=== PATIENT | male | born 1955 | race American Indian/Alaskan Native ===

== ENCOUNTER 2018-10-22 09:47 | Day surgery (SDC) | payer BC ==
[2018-10-21 11:41] VITALS: BMI 28.3
[2018-10-22 10:45] LABS: BLOOD UREA NITROGEN 14 mg/dL (7-21); CALCIUM 8.9 mg/dL (8.4-10.5); GFR NON-AFRICAN AMERICAN 56
[2018-10-22 10:47] LABS: BASO # 0.02 K/mm3 (0.0-2.0); BASO % 0.6 % (0.0-3.0); EOS # 0.1 (0.0-0.7); EOS % 2.1 % (1.5-5.0); HEMOGLOBIN 12.8 g/dL (14.0-18.0); LYMPH # 1.1 (1.2-3.4); LYMPH % 32.3 % (22.0-35.0); MEAN CELL VOLUME 96.9 fl (80.0-105.0); MEAN CORPUSCULAR HEMOGLOBIN 30.6 pg (25.0-35.0); MEAN CORPUSCULAR HGB CONC 31.6 g/dl (31.0-37.0); MEAN PLATELET VOLUME 9.8 fl (7.0-11.0); MONO # 0.4 (0.1-0.6); MONO % 12.9 % (1.0-6.0); RBC 4.18 10^6/uL (3.5-6.1); RED CELL DISTRIBUTION WIDTH 13.5 % (11.5-14.5); WHITE BLOOD COUNT 3.4 10^3/uL (4.5-11.0)
[2018-10-22 10:51] LABS: INR 1.05; PARTIAL THROMBOPLASTIN TIME 35.9 Seconds (26.9-38.3); PROTHROMBIN TIME 11.9 SECONDS (9.4-12.5)
[2018-10-22] MEDS ORDERED: Nitroglycerin 50mg in D5W 0 MG/0 ML BOTTLE IV ONE (11:15)
[2018-10-22] MEDS ORDERED: Lidocaine 2% Inj (20ml) ONE (11:15)
[2018-10-22] MEDS ORDERED: Iohexol 350 MG/100 ML VIAL ONE (11:15)
[2018-10-22] MEDS ORDERED: Iohexol 350mgl/ml 50 ML ONE (11:15)
[2018-10-22] MEDS ORDERED: Midazolam 2 MG/2 ML VIAL ONE ×3 (12:41→13:18)
[2018-10-22] MEDS ORDERED: Sodium Chloride 0.9% 1,000 ML IV SCH (14:00)
--- NOTE | 2018-10-22 15:10 | CP.PCM.HP ---
<Yuan Vail - Last Filed: 10/23/18 06:45> History of Present Illness - History of Present Illness History of Present Illness: Patient is a 63 male with past medical history of hypertension, asthma, and hyperlipidemia presenting s/p PTCA. 3 stents were placed: 2 stents in first and second OM and 3rd stent in the circumflex. Patient is seen after procedure doing well in no acute distress and without complaints. Patient states about 3 weeks ago her experienced a stabbing chest pain when walking to his car. He followed up with his PMD regarding this smyptom who referred patinet to Dr. Burrell who did the PTCA. Patient states prior to these 3 weeks he had never experienced this chest pain. Surgical hx: Prostatectomy Allergies:NKDA Social hx: denies tobacco, alcohol, illicit drug use Family hx: father: CHF Present on Admission - Present on Admission Any Indicators Present on Admission: No Review of Systems - Constitutional Constitutional: absent: Chills, Fever - EENT Eyes: absent: Change in Vision Ears: absent: Dizziness - Cardiovascular Cardiovascular: absent: Chest Pain, Dyspnea, Leg Edema, Palpitations, Rapid Heart Rate - Respiratory Respiratory: absent: Cough, Dyspnea - Gastrointestinal Gastrointestinal: absent: Abdominal Pain - Genitourinary Genitourinary: absent: Dysuria - Musculoskeletal Musculoskeletal: absent: Back Pain, Numbness, Tingling - Psychiatric Psychiatric: absent: Anxiety - Hematologic/Lymphatic Hematologic: absent: Easy Bleeding Past Patient History - Past Medical History & Family History Past Medical History?: Yes - Past Social History Smoking Status: Never Smoked - CARDIAC Hx Pacemaker: No - PULMONARY Hx Respiratory Disorders: Yes Hx Asthma: Yes - NEUROLOGICAL Hx Paralysis: No - HEENT Hx HEENT Problems: No - RENAL Hx Chronic Kidney Disease: No Other/Comment: BPH. HEMATURIA - ENDOCRINE/METABOLIC Hx Endocrine Disorders: No - HEMATOLOGICAL/ONCOLOGICAL Hx Blood Transfusions: No - INTEGUMENTARY Hx Dermatological Problems: No - MUSCULOSKELETAL/RHEUMATOLOGICAL Hx Musculoskeletal Disorders: Yes - GASTROINTESTINAL Hx Gastrointestinal Disorders: No - GENITOURINARY/GYNECOLOGICAL Hx Prostate Problems: Yes - PSYCHIATRIC Hx Emotional Abuse: No Hx Physical Abuse: No Hx Substance Use: No - SURGICAL HISTORY Hx Surgeries: Yes - ANESTHESIA Hx Anesthesia Reactions: No Hx Malignant Hyperthermia: No Meds Home Medications: Home Medication List Medication Instructions Recorded Confirmed Type RX: Atorvastatin [Lipitor] 40 mg PO DIN #30 tab 10/22/18 Rx Allergies/Adverse Reactions: Allergies Allergy/AdvReac Type Severity Reaction Status Date / Time No Known Allergies Allergy Verified 02/23/14 09:41 Physical Exam - Head Exam Head Exam: ATRAUMATIC, NORMAL INSPECTION - Eye Exam Eye Exam: Normal appearance - ENT Exam ENT Exam: Mucous Membranes Moist - Neck Exam Neck exam: Positive for: Normal Inspection - Respiratory Exam Respiratory Exam: Clear to Auscultation Bilateral, NORMAL BREATHING PATTERN. absent: Rhonchi, Wheezes - Cardiovascular Exam Cardiovascular Exam: REGULAR RHYTHM, +S1, +S2 - GI/Abdominal Exam GI & Abdominal Exam: Normal Bowel Sounds, Soft - Extremities Exam Extremities exam: Positive for: normal inspection - Back Exam Back exam: NORMAL INSPECTION - Neurological Exam Neurological exam: Alert, Oriented x3 - Psychiatric Exam Psychiatric exam: Normal Affect, Normal Mood - Skin Skin Exam: Normal Color, Warm Additional comments: no hematoma Results - Vital Signs Recent Vital Signs: Last Vital Signs Temp 97.9 F 10/22/18 14:00 Pulse 62 10/22/18 15:00 Resp 16 10/22/18 15:00 BP 143/92 H 10/22/18 15:00 Pulse Ox 97 10/22/18 14:00 - Labs Result Diagrams: 10/22/18 10:25 10/22/18 10:25 Labs: Laboratory Results - last 24 hr 10/22/18 10/22/18 10/22/18 10:25 10:25 10:25 WBC 3.4 L RBC 4.18 Hgb 12.8 L Hct 40.5 L MCV 96.9 MCH 30.6 MCHC 31.6 RDW 13.5 Plt Count 266 MPV 9.8 Neut % (Auto) 52.1 Lymph % (Auto) 32.3 [place] % (Auto) 12.9 H Eos % (Auto) 2.1 Baso % (Auto) 0.6 Lymph # (Auto) 1.1 L [place] # (Auto) 0.4 Eos # (Auto) 0.1 Baso # (Auto) 0.02 Absolute Neuts (auto) 1.78 PT 11.9 INR 1.05 APTT 35.9 Sodium 141 Potassium 4.2 Chloride 104 Carbon Dioxide 31 Anion Gap 10 BUN 14 Creatinine 1.3 Est GFR ( Amer) > 60 Est GFR (Non-Af Amer) 56 Random Glucose 97 Calcium 8.9 Blood Type Blood Type Confirm Antibody Screen BBK History Checked 10/22/18 10/22/18 10:25 10:45 WBC RBC Hgb Hct MCV MCH MCHC RDW Plt Count MPV Neut % (Auto) Lymph % (Auto) [place] % (Auto) Eos % (Auto) Baso % (Auto) Lymph # (Auto) [place] # (Auto) Eos # (Auto) Baso # (Auto) Absolute Neuts (auto) PT INR APTT Sodium Potassium Chloride Carbon Dioxide Anion Gap BUN Creatinine Est GFR ( Amer) Est GFR (Non-Af Amer) Random Glucose Calcium Blood Type O POSITIVE Blood Type Confirm O POSITIVE Antibody Screen Negative BBK History Checked No verified bt Assessment & Plan - Assessment and Plan (Free Text) Assessment: Patient is a 63 male with past medical history of hypertension, asthma, and hyperlipidemia presenting s/p PTCA Plan: Coronary artery disease -Aspirin, lipitor, Plavix Hypertension -Metoprolol tartrate 25 mg BID -Hydralazine 10 mg q6h PRN Asthma -Dufaby Karan <Peter Aburto U - Last Filed: 10/29/18 21:22> Results - Vital Signs Recent Vital Signs: Last Vital Signs Temp 98.8 F 10/23/18 12:00 Pulse 83 10/23/18 12:00 Resp 19 10/23/18 12:00 BP 142/76 10/23/18 13:45 Pulse Ox 99 10/23/18 06:00 - Labs Result Diagrams: 10/23/18 06:45 10/23/18 06:45 Attending/Attestation - Attestation I have personally seen and examined this patient.: Yes I have fully participated in the care of the patient.: Yes I have reviewed all pertinent clinical information: Yes Notes (Text): Please see/read my dictated notes.
[2018-10-22] MEDS ORDERED: Albuterol-Ipratrop 3 mg / 0.5 (3 ml) UD IH PRN (17:08)
--- NOTE | 2018-10-22 19:19 | CARD ---
APPROVED REPORT Date of service: 10/22/2018 EKG Measurement Heart [id number] <Conclusion> Normal sinus rhythm Nonspecific ST and T wave abnormality Abnormal ECG
--- NOTE | 2018-10-22 23:36 | HP ---
DATE OF EXAM: 10/22/2018 HISTORY OF PRESENT ILLNESS: The patient is a 63-year-old male who is admitted post cardiac catheterization and post angioplasty to telemetry. The patient who has been under the care of Dr. Alex Burrell. The patient underwent cardiac catheterization and angioplasty and admitted post angioplasty. CODE STATUS: Full code. LIVING WILL ADVANCE DIRECTIVE: None. ALLERGIES: NONE. Height is 5 feet 9 inches. Weight 192. BMI 28.4. HOME MEDICATIONS: Lopressor 25 mg daily, Plavix 75 mg daily, Ecotrin 81 mg daily, Ventolin HFA every 6 hours p.r.n., and Lipitor 40 mg daily. SOCIAL HISTORY: Denies substance abuse and history of alcohol use still 2013. Denies smoking. OCCUPATIONAL HISTORY: The patient is employed by the [employer]. FAMILY HISTORY: Positive for coronary artery disease and hypertension. PAST MEDICAL AND SURGICAL HISTORY: History of anemia, history of elevated prostate-specific antigen, history of pyuria, ketonuria, microscopic hematuria, history of prostatomegaly, prostate enlargement, history of asthma, history of severe prostatomegaly and prostatic hypertrophy, history of right renal hemangioma, history of fatty infiltration of the liver, history of prostatic adenomatous and fibromuscular hyperplasia, history of hepatic steatosis, history of nonobstructing left nephrolithiasis, history of hematuria, history of benign prostatic hypertrophy with hematuria and bladder outlet obstruction, and history of transurethral resection of the prostate. PHYSICAL EXAMINATION: GENERAL: The patient is seen and examined in room 273, bed 3. The patient is lying in the bed post cardiac catheterization. VITAL SIGNS: T max is 98.8. Telemetry shows sinus rhythm, heart rate 62 and 64, blood pressure is 160/88, 151/96, 151/97, 169/91, 138/91, and 148/72, respirations 20, and O2 sat is 97% to 98%. HEENT: Head; normocephalic and atraumatic. HEENT examination shows pink conjunctivae. Anicteric sclerae. No oropharyngeal lesion. NECK: No neck rigidity. CHEST: Kyphosis. LUNGS: Shows no audible crackle, rales, or wheezing. ABDOMEN: Soft. Positive bowel sounds. Slightly protuberant abdomen. GENITALIA: Male. RECTAL: Deferred. EXTREMITIES: Shows no pitting edema. No calf tenderness. No Woody's signs. Right groin dressing is intact without any bleeding. MUSCULOSKELETAL: Shows a body mass index of 28. DIAGNOSTIC DATA: On 10/22/2018; WBC 3.4, hemoglobin/hematocrit 12.8 and 40.5, and platelet 266. PT/PTT is normal. Sodium 141, potassium 4.2, chloride 104, CO2 of 31, anion gap 10, BUN 14, creatinine 1.3, GFR greater than 60, and glucose 97. Blood type O+. EKG shows sinus rhythm, nonspecific ST changes. IMPRESSION AND PLAN: 1. Coronary artery disease. 2. Hypertension. 3. Hyperlipidemia. 4. Leukopenia and anemia. 5. Status post successful angioplasty and stent placement. Plan at this time, the patient is admitted to extended recovery on telemetry floor post cardiac catheterization angioplasty. Repeat CBC and CMP ordered. Current medications; hydralazine 10 mg IV every 6 hours p.r.n., DuoNeb nebulizer every 6 hours [id number], Ecotrin 81 mg daily, Lipitor 40 mg daily, Lopressor 25 mg daily, and Plavix 75 mg daily. Repeat EKG ordered. Heart-healthy diet ordered. Bedrest, post angioplasty ordered. The patient will be monitored overnight as per post angioplasty protocol. If the patient stays stable in the morning without any complication, the patient will be considered for discharge in the morning after evaluation and clearance by Cardiology. Dictated and electronically signed, not read. Peter Aburto MD
--- NOTE | 2018-10-23 00:51 | CARD ---
APPROVED REPORT Date of service: 10/22/2018 EKG Measurement Heart [id number] <Conclusion> Sinus bradycardia Possible Septal infarct, age undetermined NDSTT abnormalities CCR Abnormal ECG
[2018-10-23] MEDS: Albuterol-Ipratrop 3 mg / 0.5 (3 ml) UD IH SCH ×4 (01:14→13:32)
[2018-10-23 06:05] VITALS: O2SAT 99
[2018-10-23 06:53] LABS: BASO # 0.01 K/mm3 (0.0-2.0); BASO % 0.2 % (0.0-3.0); EOS # 0.1 (0.0-0.7); EOS % 2.3 % (1.5-5.0); LYMPH # 1.2 (1.2-3.4); LYMPH % 28.9 % (22.0-35.0); MEAN CELL VOLUME 97.6 fl (80.0-105.0); MEAN CORPUSCULAR HEMOGLOBIN 30.7 pg (25.0-35.0); MEAN CORPUSCULAR HGB CONC 31.4 g/dl (31.0-37.0); MEAN PLATELET VOLUME 9.7 fl (7.0-11.0); MONO # 0.5 (0.1-0.6); MONO % 12.7 % (1.0-6.0); RBC 4.24 10^6/uL (3.5-6.1); RED CELL DISTRIBUTION WIDTH 13.8 % (11.5-14.5); WHITE BLOOD COUNT 4.3 10^3/uL (4.5-11.0)
[2018-10-23 07:21] LABS: BLOOD UREA NITROGEN 14 mg/dL (7-21); CALCIUM 8.9 mg/dL (8.4-10.5); GFR NON-AFRICAN AMERICAN 56
--- NOTE | 2018-10-23 08:15 | CARDCATH ---
PROCEDURE DATE: 10/22/2018 CARDIAC CATH REPORT HISTORY: The patient is a 63-year-old male with multiple cardiac risk factors, who presents with progressive exertional shortness of breath and angina. His symptoms are classic. Because of his high probability for CAD, cardiac catheterization was recommended. PROCEDURE: Left heart catheterization with coronary arteriography and left ventriculogram, followed by PTCA and stent of three lesions. The right femoral artery was cannulated with 6-Ukrainian sheath. There were no complications. The findings on catheterization revealed a right dominant circulation. The RCA revealed a 60% stenosis in the proximal portion, followed by a 99% stenosis in the posterior lateral branch of the RCA. The left main artery revealed mild intimal irregularities without critical lesions. The LAD revealed a 20-30% proximal LAD stenoses. There was a high diagonal vessel or high obtuse marginal branch that revealed a 90% stenoses. The circumflex system revealed a 99% stenoses in a large obtuse marginal branch. There is a 90% stenosis in the AV groove branch of the circumflex artery. LV function is preserved with an EF of 50-55%. The patient was started on intravenous Angiomax under fluoroscopic guide, the guiding catheter was placed in the ostium of the left main artery and 0.013 ATW wire was placed in the high diagonal or high obtuse marginal branch. The 2.25 x 12 mm drug-eluting stent was placed and deployed with excellent results with MARY KATE III flow and no residual stenoses. The wire was then brought back and placed into the AV groove branch of the circumflex artery. A 2.25 x 12 mm drug-eluting stent was placed and deployed. After balloon deflation removal, repeat coronary arteriography revealed an excellent result with no residual stenosis and MARY KATE III flow. The wire was then brought back and placed into the large obtuse marginal branch past critical stenoses. A 2.0 balloon was utilized to predilate the lesion. This was followed by implantation of a 3.0 x 12 mm drug-eluting stent deployed at 14 ounces of pressure. Repeat coronary arteriography revealed an excellent result with no residual stenosis and MARY KATE III flow. Angio-Seal was used to close the femoral artery site. The patient tolerated the procedure well. In summary, the procedure was successful at PTCA and stent of three lesions: 1. In the AV groove branch of circumflex artery. 2. PTCA and stent with a drug-eluting stent of the large obtuse marginal branch. 3. PTCA and stent with a drug-eluting stent of a high diagonal versus a high obtuse marginal branch vessel. Cardiac catheterization reveals triple-vessel disease with good LV function. Given these findings, the patient will need to remain on aspirin indefinitely and Plavix for least a year, undergo a strict cardiac risk reduction program. We will bring him back in 1 week for PTCA and stent of an RCA. Alex Burrell MD
[2018-10-23 12:43] VITALS: PULSE 83; RESP 19; TEMP 98.8
[2018-10-23 13:56] VITALS: BP 142/76
--- NOTE | 2018-10-23 14:03 | DS ---
FINAL PROGRESS NOTE AND DISCHARGE SUMMARY HISTORY OF PRESENT ILLNESS: The patient was seen in room 273, bed 3. The patient is lying in the bed. The patient is comfortable, in no distress. The patient is alert, awake, responsive. Overnight nurse's notes were reviewed. The patient did not have any adverse events documented or noted or reported. The patient denies any chest pain. PHYSICAL EXAMINATION VITAL SIGNS: T-max 98. Telemetry shows sinus rhythm, heart rate 62, 68; blood pressure 153/87, 163/92, 151/96; respirations 18; O2 sat 99%. The patient is seen lying in the bed. HEENT: Head: Normocephalic, atraumatic. HEENT examination shows pink conjunctivae. Anicteric sclerae. No oropharyngeal lesion. NECK: No neck rigidity. CHEST: Kyphosis. LUNGS: Show no audible crackle, rales or wheezing. CARDIOVASCULAR: S1, S2, regular rhythm. ABDOMEN: Soft. Positive bowel sounds. Groin examination is within normal limits. No hematoma noted. EXTREMITIES: Pulses are palpable in the lower extremity. Both feet are warm to touch.. Gait examination is not tested. MUSCULOSKELETAL: Shows a body mass index of 28.4. NEUROLOGIC: The patient is alert, awake, responsive. He is able to move upper and lower extremities without assistance. DIAGNOSTICS: 10/23/2018, WBC 4.3, hemoglobin and hematocrit 13 and 41.4, platelets 248. Sodium 139, potassium 4.6, chloride 103, CO2 of 32, anion gap 9, BUN 14, creatinine 1.3, GFR greater than 60, glucose 96, calcium 8.9. Blood type O+. FINAL IMPRESSION, PLAN AND DISCHARGE DIAGNOSES 1. Multivessel coronary artery disease. 2. 60% proximal right coronary artery stenosis. 3. 90% stenosis of the posterolateral branch of the right coronary artery. 4. 20-39% proximal left anterior descending artery stenosis. 5. 90% stenosis of the high diagonal vessel or high obtuse marginal branch. 6. 99% stenosis of the large obtuse marginal branch of the left circumflex. 7. 90% stenosis of the atrioventricular groove branch of the left circumflex. 8. Left ventricular ejection fraction of 50-55%. 9. Status post successful angioplasty and stent placement of the atrioventricular groove branch of the left circumflex artery and angioplasty and stent placement of the drug-eluting stent placement of the large obtuse marginal branch and angioplasty and stent placement with the drug-eluting stent of the high diagonal versus the high obtuse marginal branch vessel. 10. Multivessel coronary artery disease. 11. Sinus bradycardia. 12. 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 13. Nonspecific ST-T changes. 14. History of hypertension. 15. History of asthma, history of former alcohol use, history of prostatic hypertrophy. 1. Coronary artery disease. 2. Hypertension. 3. Hyperlipidemia. 4. Leukopenia and anemia. 5. Status post successful angioplasty and stent placement. PLAN: At this time, the patient will be cleared for discharge with discharge followup with Dr. Ananda Moreno and Dr. Alex Burrell within 1 week. Discharge medications as per updated ambulatory orders. The patient will be resumed on aspirin 81 mg daily. The patient will resume on Ventolin HFA. The patient will resume on Ecotrin 81 mg daily, Lipitor 40 mg daily, Plavix 75 mg daily, metoprolol 25 mg daily. Time spent in the discharge process, 45 minutes. Dictated and electronically signed, not read. Peter Aburto MD [email or web address]
== END 2018-10-23 13:58 | disposition home or self-care (01) ==
LOC: SDSVAS 09:47 → 2RSO 14:02 → SDSVAS 10-23 13:58
PROVIDERS: ATTEND Internal Medicine Cardiovascular Disease
DX: I25.10 Atherosclerotic heart disease of native coronary artery without angina pectoris (principal); I10 Essential (primary) hypertension; E78.5 Hyperlipidemia, unspecified; N40.0 Benign prostatic hyperplasia without lower urinary tract symptoms; D64.9 Anemia, unspecified; J45.909 Unspecified asthma, uncomplicated; D72.819 Decreased white blood cell count, unspecified; Z90.79 Acquired absence of other genital organ(s); K76.0 Fatty (change of) liver, not elsewhere classified; Z87.442 Personal history of urinary calculi; Z82.49 Family history of ischemic heart disease and other diseases of the circulatory system
CPT/HCPCS: 36415 ×2; 80048 ×2; 85025 ×2; 85610; 85730; 86850; 86900; 93005; 93458; 94640; 99152; 99153; C1725; C1760; C1769 ×2; C1874 ×2; C1887; C2629; C9600; J0583; J1644; J2250; J3010; J7030; Q9967 ×3

== ENCOUNTER 2018-10-31 06:13 | Day surgery (SDC) | payer BC ==
[2018-10-27 09:19] VITALS: BMI 27.3
[2018-10-31 07:14] LABS: BASO # 0.02 K/mm3 (0.0-2.0); BASO % 0.5 % (0.0-3.0); EOS # 0.1 (0.0-0.7); EOS % 2.5 % (1.5-5.0); HEMOGLOBIN 12.8 g/dL (14.0-18.0); LYMPH # 1.4 (1.2-3.4); MEAN CORPUSCULAR HEMOGLOBIN 30.3 pg (25.0-35.0); MEAN CORPUSCULAR HGB CONC 31.6 g/dl (31.0-37.0); MEAN PLATELET VOLUME 9.7 fl (7.0-11.0); MONO # 0.4 (0.1-0.6); MONO % 10.3 % (1.0-6.0); RBC 4.22 10^6/uL (3.5-6.1); RED CELL DISTRIBUTION WIDTH 13.4 % (11.5-14.5); WHITE BLOOD COUNT 4.1 10^3/uL (4.5-11.0)
[2018-10-31 07:23] LABS: INR 1.06; PARTIAL THROMBOPLASTIN TIME 35.4 Seconds (26.9-38.3)
[2018-10-31 07:40] LABS: LDL CHOLESTEROL 60 mg/dL (0-129)
[2018-10-31 07:46] LABS: BLOOD UREA NITROGEN 19 mg/dL (7-21); GFR NON-AFRICAN AMERICAN 56; HDL CHOLESTEROL 39 mg/dL (29-60)
[2018-10-31] MEDS ORDERED: Lidocaine 2% Inj (20ml) ONE (08:47)
[2018-10-31] MEDS ORDERED: Phenylephrine 10 mg/ml Inj ONE (08:47)
[2018-10-31] MEDS ORDERED: Iodixanol 320 MG/ML 100 ML BOTTLE IV ONE (08:48)
[2018-10-31] MEDS ORDERED: Iodixanol 320 MG/ML 200 ML BOTTLE IV ONE (08:48)
[2018-10-31] MEDS ORDERED: Iohexol 350mgl/ml 50 ML ONE (08:48)
[2018-10-31] MEDS ORDERED: Nitroglycerin 50mg in D5W 0 MG/0 ML BOTTLE IV ONE (08:50)
--- NOTE | 2018-10-31 09:18 | CARD ---
APPROVED REPORT Date of service: 10/31/2018 EKG Measurement Heart [id number] [place] 156P27 [id number] <Conclusion> Sinus rhythm with marked sinus arrhythmia Left axis deviation Nonspecific T wave abnormality Abnormal ECG
[2018-10-31] MEDS ORDERED: Midazolam 2 MG/2 ML VIAL ONE ×2 (09:21→09:30)
[2018-10-31] MEDS ORDERED: Sodium Chloride 0.9% 1,000 ML IV SCH (10:30)
--- NOTE | 2018-10-31 11:24 | CP.PCM.HP ---
History of Present Illness - History of Present Illness History of Present Illness: H&P for Dr Aburto Mr Tomlinson, 63M with PMH CAD s/p recent SUDHIR x 3, HTN/HLD, asthma, had a cardiac catherterization today. 4 weeks ago, he experienced a stabbing chest pain while walking to his car. Last week, he had a cardiac cath and stents placement (2 stents in first and second OM and 3rd stent in the circumflex). today he underwent another cath are received a drug eluting stent in mRCA. ROS - Denies f/c, PALACIO, CP, SOB, N/V/D/C, abdominal pain, dysuria, dizziness PMH: CAD s/p recent SUDHIR x 3 (10/23/18: 2 stents in first and second OM and 3rd stent in the circumflex. ) HTN/HLD asthma Hx anemia Hx elevated PSA, prostate adenomatous and fibromuscular hyperplasia Hx hematuria, R renal hemangioma, Non-obstructing L nephrolothiasis, Hx bladder outlet obstruction Fatty liver Surgical hx: TURP Prostatectomy Family hx: CAD. HTN. father: CHF Social hx: denies tobacco, alcohol, illicit drug use All: NKDA Med: lopressor 25 QD, plavix 74, asa 81, ventolin prn, lipitor 40 PMD: Dr Aburto Present on Admission - Present on Admission Any Indicators Present on Admission: No Review of Systems - Review of Systems All systems: reviewed and no additional remarkable complaints except (stated in HPI) Past Patient History - Past Medical History & Family History Past Medical History?: Yes - Past Social History Smoking Status: Never Smoked - CARDIAC Hx Pacemaker: No - PULMONARY Hx Respiratory Disorders: Yes Hx Asthma: Yes - NEUROLOGICAL Hx Paralysis: No - HEENT Hx HEENT Problems: No - RENAL Hx Chronic Kidney Disease: No Other/Comment: BPH. HEMATURIA - ENDOCRINE/METABOLIC Hx Endocrine Disorders: No - HEMATOLOGICAL/ONCOLOGICAL Hx Blood Transfusions: No - INTEGUMENTARY Hx Dermatological Problems: No - MUSCULOSKELETAL/RHEUMATOLOGICAL Hx Musculoskeletal Disorders: Yes - GASTROINTESTINAL Hx Gastrointestinal Disorders: No - GENITOURINARY/GYNECOLOGICAL Hx Prostate Problems: Yes - PSYCHIATRIC Hx Emotional Abuse: No Hx Physical Abuse: No Hx Substance Use: No - SURGICAL HISTORY Hx Surgeries: Yes - ANESTHESIA Hx Anesthesia Reactions: No Hx Malignant Hyperthermia: No Meds Allergies/Adverse Reactions: Allergies Allergy/AdvReac Type Severity Reaction Status Date / Time No Known Allergies Allergy Verified 02/23/14 09:41 Physical Exam - Constitutional Appears: Well - Head Exam Head Exam: ATRAUMATIC, NORMAL INSPECTION, NORMOCEPHALIC - Eye Exam Eye Exam: EOMI, Normal appearance, PERRL. absent: Scleral icterus Pupil Exam: NORMAL ACCOMODATION - ENT Exam ENT Exam: Mucous Membranes Moist - Neck Exam Additional comments: supple - Respiratory Exam Respiratory Exam: Clear to Auscultation Bilateral, NORMAL BREATHING PATTERN. absent: Rales, Rhonchi, Wheezes - Cardiovascular Exam Cardiovascular Exam: REGULAR RHYTHM, +S1, +S2 - GI/Abdominal Exam GI & Abdominal Exam: Normal Bowel Sounds, Soft. absent: Distended, Firm, Guarding, Rigid, Tenderness - Extremities Exam Extremities exam: Positive for: normal capillary refill, pedal pulses present. Negative for: calf tenderness, pedal edema Additional comments: L groin dressing d/c/i - Neurological Exam Neurological exam: Alert, CN II-XII Intact, Oriented x3 - Psychiatric Exam Psychiatric exam: Normal Affect, Normal Mood - Skin Skin Exam: Dry, Warm Results - Vital Signs Recent Vital Signs: Last Vital Signs Temp 98.3 F 10/31/18 06:40 Pulse 69 10/31/18 06:40 Resp 18 10/31/18 06:40 BP 170/106 H 10/31/18 06:40 Pulse Ox 100 10/31/18 06:40 - Labs Result Diagrams: 10/31/18 06:50 10/31/18 06:50 Labs: Laboratory Results - last 24 hr 10/31/18 10/31/18 10/31/18 06:50 06:50 06:50 WBC 4.1 L RBC 4.22 Hgb 12.8 L Hct 40.5 L MCV 96.0 MCH 30.3 MCHC 31.6 RDW 13.4 Plt Count 275 MPV 9.7 Neut % (Auto) 51.7 Lymph % (Auto) 35.0 [place] % (Auto) 10.3 H Eos % (Auto) 2.5 Baso % (Auto) 0.5 Lymph # (Auto) 1.4 [place] # (Auto) 0.4 Eos # (Auto) 0.1 Baso # (Auto) 0.02 Absolute Neuts (auto) 2.11 PT 12.0 INR 1.06 APTT 35.4 Sodium 143 Potassium 3.8 Chloride 105 Carbon Dioxide 29 Anion Gap 12 BUN 19 Creatinine 1.3 Est GFR ( Amer) > 60 Est GFR (Non-Af Amer) 56 Random Glucose 85 Calcium 9.0 Triglycerides 78 Cholesterol 117 L LDL Cholesterol Direct 60 HDL Cholesterol 39 Blood Type Antibody Screen BBK History Checked 10/31/18 06:50 WBC RBC Hgb Hct MCV MCH MCHC RDW Plt Count MPV Neut % (Auto) Lymph % (Auto) [place] % (Auto) Eos % (Auto) Baso % (Auto) Lymph # (Auto) [place] # (Auto) Eos # (Auto) Baso # (Auto) Absolute Neuts (auto) PT INR APTT Sodium Potassium Chloride Carbon Dioxide Anion Gap BUN Creatinine Est GFR ( Amer) Est GFR (Non-Af Amer) Random Glucose Calcium Triglycerides Cholesterol LDL Cholesterol Direct HDL Cholesterol Blood Type O POSITIVE Antibody Screen Negative BBK History Checked Patient has bt Assessment & Plan - Assessment and Plan (Free Text) Plan: Mr Tomlinson, 63M with PMH CAD s/p recent SUDHIR x 3, HTN/HLD, asthma, had a cardiac catherterization today. Last week, he had a cardiac cath and stents placement (2 stents in first and second OM and 3rd stent in the circumflex). today he underwent another cath [facility]. [facility] s/p recent SUDHIR x 3 PLUS 1 today (10/23/18: 2 stents in first and second OM and 3rd stent in the circumflex. ) HTN/HLD - continue home ASA, plavix, lopressor, lipitor - Total cholesterol 117. LDL 60 asthma, controlled - xopenex prn Hx anemia - stable, outpatient work up Hx elevated PSA, prostate adenomatous and fibromuscular hyperplasia Hx hematuria, R renal hemangioma, Non-obstructing L nephrolothiasis, Hx bladder outlet obstruction Fatty liver Low risk for GI ulcer Received bivalirudin during cath today s/r/d/w Dr Aburto
--- NOTE | 2018-10-31 12:58 | CARD ---
APPROVED REPORT Date of service: 10/31/2018 EKG Measurement Heart [id number] <Conclusion> Normal sinus rhythm Nonspecific ST and T wave abnormality Prolonged QT Abnormal ECG
--- NOTE | 2018-10-31 13:33 | CARDCATH ---
PROCEDURE DATE: 10/31/2018 CARDIAC CATH AND PTCA HISTORY: The patient is a 63-year-old male who presents for PTCA and stent. The patient has documented multivessel CAD, has been complaining of exertional dyspnea. The patient underwent series of complex angioplasties of the circumflex system last week and presents for procedure of his RCA. PROCEDURE: Left heart catheterization with coronary arteriography and PTCA and stent of the PDA as well as the mid RCA. The left femoral artery was cannulated with a 6-Wolof sheath. There were no complications. I performed moderate sedation which included the presence of an independent trained observer that assisted in monitoring the patient's level of consciousness and physiologic status. After administration of Versed and fentanyl, my intra-service time was 30 minutes. The findings on catheterization revealed circumflex system that revealed three stents that were patent, the first OM, the second OM which is under PTCA, the large obtuse marginal branch as well as the AV groove branch of the circumflex artery, all were patent with good flow and three patent stents. The RCA was a dominant vessel. There was a 99% stenoses in the proximal portion of the PDA as well as an eccentric 90% stenoses of the mid/proximal RCA. The patient was started on intravenous Angiomax on the fluoroscopic guide, the guiding catheter was placed in the ostium of the RCA and 0.014 ATW wire was used to cross both critical lesions. A 2.0 balloon was utilized to pre-dilate the PDA. A 2.0 x 15 mm drug-eluting stent was placed and deployed in the proximal portion of the PDA, this was followed by placement of the 3.0 x 12 mm drug-eluting stent in the proximal/mid RCA lesion. Repeat coronary arteriography revealed an excellent result with no residual stenosis and MARY KATE III flow. Angio-Seal was used to close the left femoral artery site. The patient tolerated the procedure well. In summary, the procedure was a successful PTCA and stent of two critical lesions in the RCA 1 with an eccentric 90% stenoses in the proximal/mid RCA as well as a 99% stenoses in the proximal portion of the PDA. Drug-eluting stents were utilized. Cardiac catheterization reveals patent stents in the AV groove branch of the circumflex artery, proximal portion of the large OM, proximal portion of the first OM. In addition, his PRU you was found to be therapeutic. Given these findings, the patient will need to remain on aspirin indefinitely and Plavix for at least a year and undergo a strict cardiac risk reduction program. Alex Burrell MD [facility] # [id number]
[2018-10-31] MEDS ORDERED: Levalbuterol 0.63 MG/3 ML Inhal Soln UD IH PRN (15:50)
[2018-11-01 01:19] VITALS: RESP 20
[2018-11-01 07:04] VITALS: TEMP 97.6; O2SAT 97
[2018-11-01 08:34] LABS: BASO # 0.02 K/mm3 (0.0-2.0); BASO % 0.4 % (0.0-3.0); EOS # 0.1 (0.0-0.7); LYMPH # 1.5 (1.2-3.4); LYMPH % 32.6 % (22.0-35.0); MEAN CELL VOLUME 97.4 fl (80.0-105.0); MEAN CORPUSCULAR HEMOGLOBIN 30.4 pg (25.0-35.0); MEAN CORPUSCULAR HGB CONC 31.3 g/dl (31.0-37.0); MEAN PLATELET VOLUME 9.9 fl (7.0-11.0); MONO # 0.4 (0.1-0.6); MONO % 9.1 % (1.0-6.0); RBC 4.27 10^6/uL (3.5-6.1); RED CELL DISTRIBUTION WIDTH 13.5 % (11.5-14.5); WHITE BLOOD COUNT 4.6 10^3/uL (4.5-11.0)
[2018-11-01 09:02] VITALS: BP 168/99; PULSE 78
[2018-11-01 09:04] LABS: BLOOD UREA NITROGEN 23 mg/dL (7-21); CALCIUM 9.1 mg/dL (8.4-10.5); GFR NON-AFRICAN AMERICAN > 60
--- NOTE | 2018-11-01 10:31 | PN ---
DATE: 11/01/2018 CARDIOLOGY FOLLOWUP SUBJECTIVE: The patient is asymptomatic. PHYSICAL EXAMINATION: VITAL SIGNS: Blood pressure 168/99, heart rate in the 70s. NECK: Negative JVD. LUNGS: Without rales. HEART: With S1, S2. EXTREMITIES: Without edema. LABORATORY DATA: Hemoglobin is 13. Chemistries unremarkable. IMPRESSION: 1. Status post percutaneous transluminal coronary angioplasty and stent of multivessel coronary artery disease. 2. Multivessel coronary artery disease. 3. Hypercholesterolemia. 4. Hypertension. PLAN: Given these findings, the patient is stable post procedure. Followup and instructions have been given to the patient. He will need to be on aspirin indefinitely and Plavix for least a year. Alex Burrell MD
--- NOTE | 2018-11-01 20:06 | CARD ---
APPROVED REPORT Date of service: 11/01/2018 EKG Measurement Heart [id number] <Conclusion> Sinus rhythm with premature atrial complexes Nonspecific T wave abnormality Prolonged QT Abnormal ECG
--- NOTE | 2018-11-01 23:46 | DS ---
HISTORY OF PRESENT ILLNESS: The patient is seen in room 273, bed 3. The patient is lying in the bed. Overnight nurse's notes were reviewed. The patient's groin examination was within normal limit. No hematoma. No bleeding noted. Pulses were palpable. Post cardiac catheterization, protocol was completed. PHYSICAL EXAMINATION: VITAL SIGNS: Reviewed. Telemetry shows sinus rhythm. T-max 97.6, pulse 65 to 78, blood pressure in the last 12 to 24 hours, systolic blood pressure ranging from 130s, 140s, 160s, diastolic has been in 80s, 90s and 102 occasions of 100. The patient is asymptomatic, O2 sat 97%. HEENT: Head is normocephalic, atraumatic. HEENT examination shows pink conjunctivae. Anicteric sclerae. No oropharyngeal lesion. NECK: No neck rigidity. CHEST: Kyphosis. LUNGS: Shows no audible crackle, rales or wheezing. CARDIOVASCULAR: S1, S2, unable to appreciate any murmur, gallop or rub. ABDOMEN: Protuberant, obese. Positive bowel sound. GENITALIA: Male. RECTAL: Deferred. GROIN: Within normal limit. No hematoma noted. VASCULAR: Palpable pulses. MUSCULOSKELETAL: Showed a body mass index of 27. Gait examination not tested. DIAGNOSTICS: CBC shows hemoglobin/hematocrit 13 and 41.6. Sodium 139, potassium 4.2, chloride 103, CO2 26, anion gap 14, BUN 23, creatinine 1.2 which is down from 1.3, GFR greater than 60, glucose 98. DISCHARGE DIAGNOSES: 1. Multivessel coronary artery disease. 2. Angina with exertional dyspnea. 3. Status post cardiac catheterization. 4. Status post angioplasty and stent placement of the posterior descending artery and the mid right coronary artery. 5. A patent stent in the left circumflex system. Three patent stents of the left circumflex system including the first obtuse marginal, second obtuse marginal and atrioventricular groove branch. 6. A 99% stenosis of the proximal portion of the posterior descending artery with plus eccentric 90% stenosis of mid to proximal right coronary artery. 7. Status post successful angioplasty and stent placement of two critical right coronary artery lesion including eccentric, 90% stenosis of the proximal and mid right coronary artery and 99% stenosis of the proximal posterior descending artery with drug-eluting stent placement. 8. Hypertension. 9. Questionable left axis deviation versus left anterior hemiblock. 10. Hypertensive cardiovascular disease. 11. Hyperlipidemia. 12. History of multivessel coronary artery disease. 13. History of asthma. 14. History of elevated PSA, history of fatty liver, history of elevated PSA with adenomatous and fibromuscular prostate hyperplasia. 15. History of hematuria, history of right renal hemangioma, history of left nonobstructing nephrolithiasis. 16. History of bladder outlet obstruction. 17. History of transurethral resection of the prostate prostatectomy. PLAN: At present, the patient is ordered to be discharged home after cleared by Cardiology. The patient was given a dose of clonidine before discharge. The patient is to be discharged home with discharge followup with Dr. Burrell and within 1 week. DISCHARGE MEDICATIONS: Clonidine 0.1 mg twice a day, Ecotrin 81 mg daily, metoprolol 25 mg daily, Plavix 75 mg daily, albuterol HFA every 6 p.r.n., Lipitor 40 mg daily. Time spent in the discharge process more than 45 minutes. Dictated and electronically signed, not read. Peter Aburto MD
== END 2018-11-01 15:00 | disposition home or self-care (01) ==
LOC: CATH 06:13 → 2RSO 10:26 → CATH 11-01 15:00
PROVIDERS: ATTEND Internal Medicine
DX: I25.119 Atherosclerotic heart disease of native coronary artery with unspecified angina pectoris (principal); I11.9 Hypertensive heart disease without heart failure; E78.5 Hyperlipidemia, unspecified; J45.909 Unspecified asthma, uncomplicated; E78.00 Pure hypercholesterolemia, unspecified; K76.0 Fatty (change of) liver, not elsewhere classified; N32.0 Bladder-neck obstruction; N40.0 Benign prostatic hyperplasia without lower urinary tract symptoms; Z79.82 Long term (current) use of aspirin; Z87.442 Personal history of urinary calculi; Z90.79 Acquired absence of other genital organ(s); Z82.49 Family history of ischemic heart disease and other diseases of the circulatory system; Z95.5 Presence of coronary angioplasty implant and graft
CPT/HCPCS: 36415 ×2; 80048 ×2; 80061; 85025 ×2; 85576; 85610; 85730; 86850; 86900; 93005 ×2; 93454; 99152; C1725; C1760; C1769 ×2; C1874 ×2; C1887; C2629; C9600; J0583; J1644; J2250; J3010; J7030; Q9966; Q9967

== ENCOUNTER 2018-11-19 12:09 | Outpatient (CLI) | payer BC | END 2018-11-19 12:10 | disposition home or self-care (01) | LOC: CARDIO 12:09 | DX: I25.10 Atherosclerotic heart disease of native coronary artery without angina pectoris (principal) ==